=== PATIENT | male | born 1945 | race Hispanic/Latino ===

== ENCOUNTER → 2020-02-27 | Outpatient (CLI) | payer OTHER, MEDICARE ==
[~2020-02-27] MED LIST: DIVA500T69 PO; DONE5TAB3 PO; MEMA5TAB42 PO; TRAZ-187 PO
== END | disposition home or self-care (01) ==
LOC: RAH 09:22
PROVIDERS: ATTEND Internal Medicine Gastroenterology
DX: K76.0 Fatty (change of) liver, not elsewhere classified (principal); K80.20 Calculus of gallbladder without cholecystitis without obstruction
CPT/HCPCS: 76700; 93975

== ENCOUNTER 2021-11-03 10:59 | Emergency (ER) | payer MEDICARE ==
[~2021-11-03] VITALS: Ht 165.1 cm; Wt 68.0 kg
[2021-11-03 11:19] LABS: BASOPHILS % (AUTO) 0.4 % (0.0-5.0); EOSINOPHILS % (AUTO) 0.4 % (0.0-8.0); HEMATOCRIT 38.6 % (42-54); LYMPHOCYTES % (AUTO) 18.2 % (21.0-51.0); MEAN CORPUSCULAR HEMOGLOBIN 31.1 pg (27.0-33.0); MEAN CORPUSCULAR HGB CONC 35.5 g/dL (32.0-36.0); MEAN CORPUSCULAR VOLUME 87.5 fL (79-99); MONOCYTES % (AUTO) 8.4 % (3.0-13.0); NEUTROPHILS % (AUTO) 72.2 % (40.0-77.0); PLATELET COUNT (AUTO) 182 K/uL (130-400); RED BLOOD CELL COUNT(AUTO) 4.41 MIL/uL (4.50-6.20); WHITE BLOOD COUNT (AUTO) 8.1 K/uL (4.8-10.8)
[2021-11-03 11:31] LABS: ALBUMIN 3.7 g/dL (3.5-5.0); TOTAL PROTEIN, SERUM 7.7 g/dL (6.0-8.3)
[2021-11-03] MEDS ORDERED: 0.9% NACL 500ML IV.SOLN 500 ML IV ONE (12:00)
[2021-11-03 13:48] LABS: APPEARANCE,URINE CLEAR (CLEAR); BILIRUBIN,URINE NEGATIVE (NEGATIVE); COLOR,URINE LIGHT-YELLOW (YELLOW); GLUCOSE, URINE (UA) NEGATIVE (NEGATIVE); KETONES,URINE NEGATIVE (NEGATIVE); LEUKOCYTE ESTERASE ,URINE NEGATIVE Leu/uL (NEGATIVE); NITRATE,URINE NEGATIVE (NEGATIVE); OCCULT BLOOD,URINE NEGATIVE (NEGATIVE); PH,URINE 6.5 (5.0-8.0); PROTEIN,URINE NEGATIVE (NEGATIVE); UROBILINOGEN,URINE 0.2 mg/dL (0.2-1.0)
[2021-11-03] MEDS ORDERED: LEVO25CA4 PO (18:10)
[2021-11-03] MEDS ORDERED: FAMO20TA8 PO (18:10)
[2021-11-03] MEDS ORDERED: LISI10TA24 PO (18:10)
[2021-11-03] MEDS ORDERED: MONT-39 PO (18:10)
[2021-11-03] MEDS ORDERED: LORA10TA7 PO (18:10)
[2021-11-03] MEDS ORDERED: FLUT16H NS (18:10)
[2021-11-03] MEDS ORDERED: OFLO5DRO21 OT (18:10)
[2021-11-03] MEDS ORDERED: IBUP-2071 PO (18:10)
[2021-11-03] MEDS ORDERED: SUCR1TAB2 PO (18:10)
[2021-11-03] MEDS ORDERED: QUET50TA24 PO (18:10)
[2021-11-03] MEDS ORDERED: PANT40TA54 PO (18:10)
[2021-11-03] MEDS ORDERED: MEMA10TA55 PO (18:10)
[2021-11-03] MEDS ORDERED: IOHEXOL 350 MG/ML 100ML INFUS..BTL IV ONE (21:31)
[2021-11-04 02:00] VITALS: BP 122/72
== END 2021-11-04 04:17 | disposition short-term general hospital (02) ==
LOC: EDH 10:59
DX: R27.0 Ataxia, unspecified (principal); R29.6 Repeated falls; R53.1 Weakness; R19.7 Diarrhea, unspecified; Z20.822 Contact with and (suspected) exposure to COVID-19; E11.9 Type 2 diabetes mellitus without complications; F03.90 Unspecified dementia, unspecified severity, without behavioral disturbance, psychotic disturbance, mood disturbance, and anxiety; F20.9 Schizophrenia, unspecified; Z79.1 Long term (current) use of non-steroidal anti-inflammatories (NSAID); Z79.82 Long term (current) use of aspirin; Z79.899 Other long term (current) drug therapy
CPT/HCPCS: 99285; 72125; 71045; 87635; 84484; 80053; 83880; 85025; 81003; 36415; 71250; 70496; 70498; 74176; 70450; C9803; Q9967; 93005

== ENCOUNTER 2024-03-05 21:07 | Emergency (ER) | payer MEDICARE ==
[~2024-03-05] VITALS: Ht 165.1 cm; Wt 58.1 kg
[2024-03-05 21:07] VITALS: BP 143/89; PULSE 75; RESP 16; TEMP 98.7
[~2024-03-05 21:07] MED LIST changes: -DONE5TAB3 PO; +FAMO20TA8 PO; +FLUT16H NS; +IBUP-2071 PO; +LEVO25CA4 PO; +LISI10TA24 PO; +LORA10TA7 PO; +MEMA10TA21 PO; -MEMA5TAB42 PO; +MONT-39 PO; +OFLO5DRO21 OT; +PANT40TA54 PO; +QUET50TA24 PO; +SUCR1TAB2 PO; -TRAZ-187 PO
--- NOTE | 2024-03-05 23:09 | HMCIMG ---
CT HEAD/BRAIN W/O CONTRAST HISTORY: Status post fall COMPARISON: None TECHNIQUE: Multiple sequential axial images of the head were obtained from the base of the skull through vertex. Patient was not given contrast through intravenous route. FINDINGS: The ventricles and extraventricular CSF spaces are dilated consistent with cerebral atrophy. Nonspecific white matter changes seen. There is right frontal scalp soft tissue swelling. There is no midline shift, mass effect or herniation. No acute intracranial bleed is seen. Visualized portion of the paranasal sinuses are grossly within normal limits. IMPRESSION: 1. No acute intracranial bleed is seen. 2. Atrophy with white matter changes. Right frontal scalp soft tissue swelling. CT was performed with one or more following dose reduction techniques: automated exposure control, adjustment of the mA and kv according to patient's size, or use of a iterative reconstruction technique.
--- NOTE | 2024-03-05 23:11 | HMCIMG ---
CT CERVICAL SPINE W/O CONTRAST HISTORY: Status post fall COMPARISON: None TECHNIQUE: Multiple sequential axial images of the cervical spine were obtained including post processing sagittal and coronal reconstruction images. Patient was not given contrast through intravenous route. FINDINGS: Orthopedic fixation plates and screws are seen traversing the C3, C4 and C5 level with disc fusion. Post laminectomy changes are seen at C3-C6. There are degenerative changes with cervical spine spondylosis. There is atherosclerosis. There is straightening of normal lordotic cervical curvature which may be related to muscle spasm or positioning. There is no loss of vertebral height. Evaluation for disc and cord pathology is limited with CT study. No evidence of fracture or dislocation is seen. IMPRESSION: 1. No fracture is seen. Postop changes with laminectomy changes limiting evaluation. DJD with cervical spine spondylosis. CT was performed with one or more following dose reduction techniques: automated exposure control, adjustment of the mA and kv according to patient's size, or use of a iterative reconstruction technique.
--- NOTE | 2024-03-05 23:15 | HMCIMG ---
CT MAXILLOFACIAL W/O CONTRAST HISTORY: Status post fall COMPARISON: None TECHNIQUE: Multiple sequential high-resolution axial images of the paranasal sinuses were obtained. Postprocessing sagittal and coronal reconstruction images were also obtained. Patient was not given contrast through intravenous route. FINDINGS: There is nasal polyposis. Right periorbital soft tissue swelling/hematoma is seen. Post sinus surgical changes are seen. Nasal septum is grossly midline. There is no evidence of mucoperiosteal thickening involving the paranasal sinuses. The infundibula are patent bilaterally. Deformity of the nasal bones are noted may be related to trauma of indeterminate age. No acute displaced fracture is seen. There is no evidence of air-fluid level in the paranasal sinuses. Parapharyngeal fat planes are preserved bilaterally. IMPRESSION: 1. No acute displaced fracture is seen. DJD. CT was performed with one or more following dose reduction techniques: automated exposure control, adjustment of the mA and kv according to patient's size, or use of a iterative reconstruction technique.
[2024-03-05] MEDS: OCTYL 2-CYANOACRYLATE 1 EACH TP SCH (23:31)
--- NOTE | 2024-03-05 23:32 | ERN ---
General Chief Complaint: Mechanical Fall Stated Complaint: MECHANICAL FALL Time Seen by MD: 21:11 History of Present Illness Initial Comments 88-year-old male presents for mechanical fall and head injury. Patient was tripped up in blankets had a mechanical fall hit his right forehead. No loss of consciousness. No repetitive questioning. He is at his baseline mentation. Does have a laceration to the right eyebrow but otherwise no trauma. Allergies: Coded Allergies: No Known Drug Allergies (Unverified Allergy, Unknown, 08/21/13) Home Meds Reported Medications Loratadine (Loratadine) 10 Mg Tablet, 10 MG PO AM, TAB 11/03/21 Famotidine (Famotidine) 20 Mg Tablet, 20 MG PO AM, TAB 11/03/21 Memantine HCl (Memantine HCl) 10 Mg Tablet, 10 MG PO BID, TAB 11/03/21 Pantoprazole Sodium (Pantoprazole Sodium) 40 Mg Tablet.dr, 40 MG PO ACBKFST, TAB 11/03/21 Ibuprofen (Ibuprofen) 800 Mg Tablet, 800 MG PO TID PRN for PAIN, TAB 11/03/21 Fluticasone Propionate (Fluticasone Propionate) 16 Gm Mcconnell.susp, NS AD 11/03/21 Ofloxacin (Ofloxacin) 5 Ml Drops, 5 ML OT QID, DROP 11/03/21 Montelukast Sodium (Montelukast Sodium) 10 Mg Tablet, 10 MG PO HS, TAB 11/03/21 Quetiapine Fumarate (Quetiapine Fumarate) 50 Mg Tablet, 50 MG PO HS, TAB 11/03/21 Lisinopril (Lisinopril) 10 Mg Tablet, 10 MG PO AM, TAB 11/03/21 Levothyroxine Sodium (Levothyroxine) 25 Mcg Capsule, 25 MCG PO ACBKFST, CAP 11/03/21 Sucralfate (Sucralfate) 1 Gm Tablet, 1 GM PO QID, TAB 11/03/21 Divalproex Sodium (Depakote ER) 500 Mg Tab.er.24h, 500 MG PO HS, TAB 09/20/17 Past Medical History Past Medical History: Dementia, Diabetes-Type II, Schizophrenia Past Surgical History: Other Surgical History Other: RT SHOULDER, NECK ROS Dictation CONSTITUTIONAL: No chills, no fever, no weakness, no diaphoresis, no malaise. HEAD/FACE: No signs of trauma. EENT: No eye pain, no blurred vision, no tearing, no double vision, no ear pain, no ear discharge, no nose pain, no nasal congestion, no throat pain, no throat swelling, no mouth pain. RESPIRATORY: No cough, no orthopnea, no SOB, no stridor, no wheezing. CARDIOVASCULAR: No chest pain, no edema, no palpitations, no syncope. GASTROINTESTINAL/ABDOMINAL: No abdominal pain, no constipation, no diarrhea, no nausea, no vomiting. GENITOURINARY: No abnormal discharge, no dysuria, no frequent urination, no hematuria. No complaints of pain in the genitals. MUSCULOSKELETAL: No back pain, no gout, no joint pain, no joint swelling, no muscle pain, no muscle stiffness, no neck pain. INTEGUMENTARY: No change in color, no change in hair/nails, no dryness, no lesion, no lumps, no rash. NEUROLOGICAL/PSYCH: No anxiety, not depressed, no emotional problem, no headache, no numbness, no pre-existing deficit, no history of seizures, no tremors, no weakness. HEMATOLOGIC/LYMPHATIC: Not anemic, no history of blood clots, no apparent bleeding, no bruising, glands not swollen. All Systems Negative, Except as Noted. Physical Exam Physical Exam Dictation VITAL SIGNS: Reviewed. GENERAL APPEARANCE: Alert, oriented x3, no acute distress. HEAD AND FACE: 2 cm laceration of the right eyebrow EYES: PERRL, pink conjunctivas, eyelid no trauma, anterior chamber clear. EARS: Pinnas intact and no signs of trauma or erythema. Ear canals clear and no discharge. TMs no erythema. NOSE: No discharge, no bleeding. OROPHARYNX: Mouth normal, teeth no caries, tongue pink. Pharynx clear, no erythema. Tonsils no exudates, no abscesses noted. Mucous membrane moist. NECK: Supple, non-tender, no thyromegaly, no masses, no JVD, no bruits. BREAST: Deferred. CHEST: No tenderness, no crepitus, no paradoxical movement, no retractions. LUNGS: Clear, well-ventilated, symmetric, no rales, no wheezing, no rhonchi, no stridor, good breath sounds bilaterally. HEART: Regular rate, regular rhythm, no murmur, no gallops. VASCULAR: No peripheral edema. ABDOMEN: Soft, positive bowel sounds, nondistended, no guarding, nontender, no rebound, no masses no hepatomegaly, no splenomegaly, no Manriquez's sign, no hernias. RECTAL: Deferred. GENITAL: Deferred. NEUROLOGICAL: Normal speech, gross motor function intact, gross sensory function intact. Baseline mentation MUSCULOSKELETAL: Neck nontender, full range of motion, back nontender, full range of motion. EXTREMITIES: Nontender, full range of motion. SKIN: Color pink, dry, no turgor, no rash, no lacerations, no abrasions, no contusions. LYMPHATICS: Deferred. MDM CC: Mechanical fall with head injury Comorbidities: Advanced age, dementia, DM two, schizophrenia Historian: Family at the bedside provided the history, patient has a history of dementia in his an unreliable historian Differential diagnosis: Head injury, fracture, laceration, other. Vital signs: Stable, remained stable in the ER Labs: None indicated CT head, cervical spine, maxillofacial (independently ordered and interpreted by me): No acute bleeds or fractures. Patient has a 2 cm laceration of the right forehead. He was repaired with glue and Steri-Strips. Good approximation. See the procedure note. Patient was soft tissue injury. We will DC PCP follow up as needed. ED Course Orders Procedure Category Date Status Time Ct Head/Brain W/O CT 03/05/24 Resulted Contrast 21:28 Ct Cervical Spine W/O CT 03/05/24 Resulted Contrast 21:28 Ct Maxillofacial W/O CT 03/05/24 Resulted Contrast 21:28 Dermabond (Dermabond) PHA 03/05/24 Complete 23:30 Current Medications Medications (Trade) Dose Ordered Sig/Munir Route PRN Reason Start Time Stop Time Status Last Admin Dose Admin Octyl Cyanoacrylate (Dermabond) 1 each ONCE TP 03/05/24 23:30 03/05/24 23:57 DC 03/05/24 23:31 Vital Signs Date Time Temp Pulse Resp B/P (MAP) Pulse Ox O2 Delivery O2 Flow Rate FiO2 03/05/24 21:07 98.8 75 16 143/89 99 Room Air Laceration/Wound Repair Laceration/Wound Repair : Wound Location: face Wound Length (cm): 2 Wound's Depth, Shape: superficial, irregular Wound Explored: clean Wound Debrided: minimal Wound Repaired With: Steri-strips, Dermabond DX & DISP Disposition: Discharge Departure Impression: Primary Impression: Fall at home Additional Impression: Laceration of right eyebrow Condition: Stable Additional Instructions: There are no brain bleeds or fractures on the CT head, face, and cervical spine. The laceration was repaired with Steri-Strips and skin glue. As we discussed, monitor for signs of infection. You can apply ice frequently to reduce swelling. The glue will come off on its own. Please follow up with the primary doctor next week for re-evaluation. Return to the emergency department as needed. Referrals: SUNIL WALLACE MD (PCP) NAHID RODRIGUEZ DO Mar 05, 2024 23:32
--- NOTE | 2024-03-05 23:36 | NUR ---
MINOR LACERATION TO R EYEBROW CLEANED WITH SKIN CLEANSER, DERMABOND AND STERISTRIPS APPLIED. PATIENT TOLERATED WELL
== END 2024-03-05 23:57 | disposition home or self-care (01) ==
LOC: EDH 21:07
DX: S01.111A Laceration without foreign body of right eyelid and periocular area, initial encounter (principal); F03.90 Unspecified dementia, unspecified severity, without behavioral disturbance, psychotic disturbance, mood disturbance, and anxiety; F20.9 Schizophrenia, unspecified; E11.9 Type 2 diabetes mellitus without complications; W01.0XXA Fall on same level from slipping, tripping and stumbling without subsequent striking against object, initial encounter; Y93.89 Activity, other specified; Y92.009 Unspecified place in unspecified non-institutional (private) residence as the place of occurrence of the external cause; Y99.8 Other external cause status
CPT/HCPCS: 12011; 70450; 70486; 72125; 99284